=== PATIENT | male | born 2000 | race Caucasian/White ===

== ENCOUNTER 2025-01-06 19:23 | Emergency (ER) | payer BC | END 2025-01-06 20:25 | disposition swing bed (61) | LOC: VM.ED 19:23 | DX: S86.811A Strain of other muscle(s) and tendon(s) at lower leg level, right leg, initial encounter (principal); X50.0XXA Overexertion from strenuous movement or load, initial encounter; Y99.0 Civilian activity done for income or pay | CPT/HCPCS: 99284 ==

== ENCOUNTER 2025-03-29 19:10 | Emergency (ER) | payer BC ==
[2025-03-29] MEDS ORDERED: Diphtheria,Pertussis(Acell),Tetanus Vaccine 0.5 ML Syringe IM ONE (19:43)
== END 2025-03-29 20:57 | disposition home or self-care (01) ==
LOC: VM.ED 19:10
DX: S61.211A Laceration without foreign body of left index finger without damage to nail, initial encounter (principal); S01.81XA Laceration without foreign body of other part of head, initial encounter; W01.198A Fall on same level from slipping, tripping and stumbling with subsequent striking against other object, initial encounter; Y93.89 Activity, other specified
CPT/HCPCS: 12001; 12013; 99282; 99283; J2003